=== PATIENT | female | born 1945 | race Caucasian/White ===

== ENCOUNTER → 2017-01-22 | Outpatient (CLI) | payer MEDICARE | LOC: CT 07:51 | DX: R10.32 Left lower quadrant pain (principal) | CPT/HCPCS: 74150 ==

== ENCOUNTER → 2020-09-07 | Outpatient (CLI) | payer MEDICARE | LOC: EDBD 11:05 → HEART 5 11:05 | DX: J44.9 Chronic obstructive pulmonary disease, unspecified (principal); R94.2 Abnormal results of pulmonary function studies; F17.210 Nicotine dependence, cigarettes, uncomplicated | CPT/HCPCS: 94010 ==